=== PATIENT | male | born 1985 | race Caucasian/White ===

== ENCOUNTER 2021-02-18 09:36 | Emergency (ER) | payer MEDICAID ==
[~2021-02-18] VITALS: Ht 160 cm; Wt 69.4 kg
[2021-02-18 09:48] VITALS: BP 126/98
[2021-02-18] MEDS ORDERED: KETOROLAC 60 MG/2 ML VIAL IM ONE (09:55)
--- NOTE | 2021-02-18 10:01 | NUR ---
PT C/O LEFT SIDED CHEST PAIN SHARP IN NATURE NON RADIATING X2 DAYS. NSR ON MONITOR. MEDICATED FOR PAIN, TOLERATED WELL. NAD. SAFETY MAINTAINED.
[2021-02-18 11:26] LABS: BASOPHILS % (AUTO) 0.2 % (0.0-2.0); EOSINOPHILS % (AUTO) 0.5 % (0.0-4.0); HEMATOCRIT 46.4 % (36-52); LYMPHOCYTES # (AUTO) 1.4 K/uL (2.0-11.5); LYMPHOCYTES % (AUTO) 18.2 % (20.5-51.1); MEAN CORPUSCULAR HEMOGLOBIN 30 pg (27-31); MEAN CORPUSCULAR HGB CONC 35 g/dL (33-37); MEAN CORPUSCULAR VOLUME 85.7 fL (80-94); MONOCYTES # (AUTO) 0.5 K/uL (0.8-1.0); MONOCYTES % (AUTO) 6.2 % (1.7-9.3); NEUTROPHILS # (AUTO) 5.6 K/uL (1.8-7.7); NEUTROPHILS % (AUTO) 74.9 % (42.2-75.2); PLATELET COUNT (AUTO) 290 K/uL (140-450); RED BLOOD CELL COUNT(AUTO) 5.41 MIL/uL (4.20-6.10); RED CELL DISTRIBUTION WIDTH 12.6 % (11.6-13.7); WHITE BLOOD COUNT (AUTO) 7.5 K/uL (4.8-10.8)
[2021-02-18 11:53] LABS: ANION GAP 11.9 (8-16); CARBON DIOXIDE 26.9 mmol/L (21-32); CREATININE 0.9 mg/dL (0.6-1.3); POTASSIUM 3.8 mmol/L (3.5-5.1)
[2021-02-18] MEDS ORDERED: IBUP-2213 PO (12:07)
[2021-02-18 12:22] VITALS: BP 100/66
== END 2021-02-18 12:22 | disposition home or self-care (01) ==
LOC: MED 09:36
DX: R07.89 Other chest pain (principal); Z79.899 Other long term (current) drug therapy
CPT/HCPCS: 36415; 71045; 80048; 84484; 85025; 96372; 99284; J1885; Q0092; 93005

== ENCOUNTER 2021-12-29 21:00 | Emergency (ER) | payer SELFPAY ==
[~2021-12-29] VITALS: Ht 160 cm; Wt 68.6 kg
[~2021-12-29 21:00] MED LIST: IBUP-2213 PO
[2021-12-29 21:04] VITALS: BP 126/77
--- NOTE | 2021-12-29 21:07 | NUR ---
PT TAKEN TO BED 11
--- NOTE | 2021-12-29 21:20 | NUR ---
4/10 LEFT SIDED CHEST PAIN THAT BEGAN AT REST X1WK. DENIES TAKING PAIN MEDS. DENIES HX RX AND ALLERGIES
[2021-12-29] MEDS ORDERED: IBUPROFEN 400 MG TAB PO ONE (23:35)
[2021-12-30 00:17] LABS: BASOPHILS # (AUTO) 0.1 K/uL (0.00-0.22); BASOPHILS % (AUTO) 0.7 % (0.0-2.0); EOSINOPHILS # (AUTO) 0.1 K/uL (0-0.4); EOSINOPHILS % (AUTO) 1.3 % (0.0-4.0); HEMATOCRIT 47.7 % (36-52); HEMOGLOBIN 16.2 g/dL (12.0-18.0); LYMPHOCYTES # (AUTO) 2.5 K/uL (2.0-11.5); LYMPHOCYTES % (AUTO) 28.5 % (20.5-51.1); MEAN CORPUSCULAR HEMOGLOBIN 30 pg (27-31); MEAN CORPUSCULAR HGB CONC 34 g/dL (33-37); MEAN CORPUSCULAR VOLUME 86.9 fL (80-94); MONOCYTES # (AUTO) 0.7 K/uL (0.8-1.0); MONOCYTES % (AUTO) 8.3 % (1.7-9.3); NEUTROPHILS # (AUTO) 5.4 K/uL (1.8-7.7); NEUTROPHILS % (AUTO) 61.2 % (42.2-75.2); PLATELET COUNT (AUTO) 272 K/uL (140-450); RED CELL DISTRIBUTION WIDTH 12.9 % (11.6-13.7); WHITE BLOOD COUNT (AUTO) 8.8 K/uL (4.8-10.8)
[2021-12-30 00:51] LABS: ANION GAP 11.4 (8-16); ASPARTATE AMINOTRANSFERASE 25 U/L (15-37); CARBON DIOXIDE 29.1 mmol/L (21-32); CHLORIDE 102 mmol/L (98-107); CREATININE 0.8 mg/dL (0.6-1.3); GFR ARICAN-AMERICAN 142 mL/min (>90); GLUCOSE 86 mg/dL (74-106); POTASSIUM 3.5 mmol/L (3.5-5.1); SODIUM SERUM 139 mmol/L (136-145); TOTAL BILIRUBIN 0.4 mg/dL (0.0-1.0); UREA NITROGEN, BLOOD 12 mg/dL (7-18)
[2021-12-30 01:40] VITALS: BP 126/77
--- NOTE | 2021-12-30 01:40 | NUR ---
Patient discharged with v/s stable. Written and verbal after care instructions given and explained. Patient verbalized understanding. Ambulatory with steady gait. All questions addressed prior to discharge. Advised to follow up with PMD.
== END 2021-12-30 01:40 | disposition home or self-care (01) ==
LOC: MED 21:00
DX: R07.89 Other chest pain (principal)
CPT/HCPCS: 36415; 71045; 80053; 84484; 85025; 93005; 99285

== ENCOUNTER 2022-05-29 15:28 | Emergency (ER) | payer SELFPAY ==
[~2022-05-29] VITALS: Ht 157.5 cm; Wt 66.9 kg
[2022-05-29 15:30] VITALS: BP 132/84
--- NOTE | 2022-05-29 15:36 | NUR ---
EKG AT TRIAGE ROOM.
--- NOTE | 2022-05-29 16:00 | NUR ---
BIB SELF C/O NAUSEA, 6/10 LEFT CHEST PAIN RADIATING TO LEFT ARM X TODAY. DENIES TRAUMA.DENIES N/V/D; SKIN IS PINK/WARM/DRY; AAOX4 WITH EVEN AND STEADY GAIT; LUNGS CLEAR BL; HR EVEN AND REGULAR; PT DENIES ANY FEVER, SOB, OR COUGH AT THIS TIME.
[2022-05-29 17:29] LABS: BASOPHILS % (AUTO) 0.3 % (0.0-2.0); EOSINOPHILS # (AUTO) 0.1 K/uL (0-0.4); EOSINOPHILS % (AUTO) 0.6 % (0.0-4.0); HEMATOCRIT 47.6 % (36-52); HEMOGLOBIN 16.1 g/dL (12.0-18.0); LYMPHOCYTES # (AUTO) 1.6 K/uL (2.0-11.5); LYMPHOCYTES % (AUTO) 16.5 % (20.5-51.1); MEAN CORPUSCULAR HEMOGLOBIN 30 pg (27-31); MEAN CORPUSCULAR HGB CONC 34 g/dL (33-37); MEAN CORPUSCULAR VOLUME 87.3 fL (80-94); MONOCYTES # (AUTO) 0.7 K/uL (0.8-1.0); MONOCYTES % (AUTO) 7.1 % (1.7-9.3); NEUTROPHILS # (AUTO) 7.5 K/uL (1.8-7.7); NEUTROPHILS % (AUTO) 75.5 % (42.2-75.2); PLATELET COUNT (AUTO) 281 K/uL (140-450); RED BLOOD CELL COUNT(AUTO) 5.45 MIL/uL (4.20-6.10); RED CELL DISTRIBUTION WIDTH 13.1 % (11.6-13.7); WHITE BLOOD COUNT (AUTO) 9.9 K/uL (4.8-10.8)
[2022-05-29 17:51] LABS: ANION GAP 10.2 (8-16); CHLORIDE 102 mmol/L (98-107); CREATININE 1.1 mg/dL (0.6-1.3); GFR ARICAN-AMERICAN 98 mL/min (>90); GLUCOSE 87 mg/dL (74-106); POTASSIUM 4.2 mmol/L (3.5-5.1); SODIUM SERUM 138 mmol/L (136-145); UREA NITROGEN, BLOOD 18 mg/dL (7-18)
[2022-05-29 18:00] LABS: ALBUMIN 4.3 g/dL (3.4-5.0); ASPARTATE AMINOTRANSFERASE 33 U/L (15-37); TOTAL BILIRUBIN 0.5 mg/dL (0.0-1.0)
[2022-05-29] MEDS ORDERED: OMEP40EC23 PO (19:08)
[2022-05-29 19:17] VITALS: BP 132/84
--- NOTE | 2022-05-29 19:17 | NUR ---
Patient discharged with v/s stable. Written and verbal after care instructions given and explained. Patient alert, oriented and verbalized understanding of instructions. Ambulatory with steady gait. All questions addressed prior to discharge. ID band removed. Patient advised to follow up with PMD. Rx of PRILOSEC given. Patient educated on indication of medication including possible reaction and side effects. Opportunity to ask questions provided and answered.
[2022-05-29 20:23] LABS: BARBITURATE, URINE NEGATIVE ng/ml (NEG <=200); BENZODIAZEPINE, URINE NEGATIVE ng/mL (NEG <=200); CANNABINOID, URINE NEGATIVE ng/mL (NEG <=50); COCAINE, URINE NEGATIVE ng/mL (NEG <=300); OPIATE, URINE NEGATIVE ng/mL (NEG <=2000); PHENCYCLIDINE SCREEN,URINE NEGATIVE ng/mL (NEG <=25)
== END 2022-05-29 19:17 | disposition home or self-care (01) ==
LOC: MED 15:28
DX: R07.9 Chest pain, unspecified (principal); Z79.899 Other long term (current) drug therapy
CPT/HCPCS: 36415; 71045; 80053; 80305; 84484; 85025; 85379; 93005; 99285

== ENCOUNTER 2022-12-28 20:24 | Emergency (ER) | payer MEDICAID ==
[~2022-12-28] VITALS: Ht 162.6 cm; Wt 67.1 kg
[~2022-12-28 20:24] MED LIST changes: +MAG-27 PO; +OMEP40EC23 PO
[2022-12-28 21:14] VITALS: BP 96/52; PULSE 68; RESP 16; TEMP 98.1; O2SAT 98
[2022-12-28] MEDS ORDERED: MECLIZINE 25 MG TAB PO ONE (21:30)
[2022-12-28] MEDS ORDERED: NACL 0.9% 1,000 ML IV ONE (21:30)
[2022-12-28] MEDS ORDERED: MECL-303 PO (21:58)
[2022-12-28] MEDS ORDERED: ONDA8TAB87 PO (21:58)
[2022-12-28 22:26] VITALS: BP 96/52; PULSE 68; RESP 16; TEMP 98.1; O2SAT 98
== END 2022-12-28 22:25 | disposition home or self-care (01) ==
LOC: MED 20:24
DX: R42 Dizziness and giddiness (principal); R11.0 Nausea; Z79.899 Other long term (current) drug therapy
CPT/HCPCS: 96360; 99283; J7030; J8597